=== PATIENT | male | born 2000 | race Caucasian/White ===

== ENCOUNTER 2018-09-01 15:43 | Emergency (ER) | payer SELFPAY ==
[2018-09-01 16:04] VITALS: BP 117/77
--- NOTE | 2018-09-01 16:14 | UC ---
Throat Pain/Nasal Raj HPI - HPI Summary HPI Summary: Ongoing for past week, started as cold and getting worse with cough and wheezing. Has very thick green secretions. Right ear with mild ache, no sore throat. Feels chest congestion and having difficulty sleeping. Also c/o general fatigue. [ End ] - History of Current Complaint Chief Complaint: UCGeneralIllness Stated Complaint: CHEST CONGESTION Time Seen by Provider: 09/01/18 16:01 Hx Obtained From: Patient Onset/Duration: Sudden Onset, Lasting Days Severity: Mild Pain Intensity: 0 Cough: Productive Associated Signs & Symptoms: Positive: Wheezing, Sinus Discomfort, Nasal Discharge - Allergies/Home Medications Allergies/Adverse Reactions: Allergies Allergy/AdvReac Type Severity Reaction Status Date / Time No Known Allergies Allergy Verified 09/01/18 16:04 Home Medications: Home Medications Cetirizine HCl/Pseudoephedrine [Zyrtec-D Tablet] 1 mg PO DAILY 09/01/18 [ History Confirmed 09/01/18] Citalopram TAB* [CeleXA TAB*] 10 mg PO DAILY 09/01/18 [History Confirmed ] busPIRone TAB* [Buspar TAB*] 5 mg PO BID PRN 09/01/18 [History Confirmed ] PMH/Surg Hx/FS Hx/Imm Hx Previously Healthy: Yes - Surgical History Surgical History: None - Family History Known Family History: Positive: Hypertension - Social History Alcohol Use: Occasionally Substance Use Type: None Smoking Status (MU): Never Smoked Tobacco Review of Systems All Other Systems Reviewed And Are Negative: Yes ENT: Positive: Sore Throat, Ear Ache, Nasal Discharge, Sinus Congestion Respiratory: Positive: Cough Neurological: Positive: Headache Is Patient Immunocompromised?: No Physical Exam Triage Information Reviewed: Yes Appearance: Well-Nourished, Ill-Appearing, Pain Distress Vital Signs: Initial Vital Signs Temp 98.4 F 09/01/18 15:58 Pulse 85 09/01/18 15:58 Resp 18 09/01/18 15:58 BP 117/77 09/01/18 15:58 Pulse Ox 98 09/01/18 15:58 Vital Signs Reviewed: Yes Eye Exam: Normal ENT: Positive: Pharyngeal erythema, Nasal congestion, Nasal drainage, TMs normal , TM bulging, Sinus tenderness Dental Exam: Normal Neck exam: Normal Neck: Positive: Supple, Nontender, No Lymphadenopathy Respiratory: Positive: Chest non-tender, Normal breath sounds, No respiratory distress, No accessory muscle use Cardiovascular Exam: Normal Abdominal Exam: Normal Bowel Sounds: Positive: Present Musculoskeletal Exam: Normal Neurological Exam: Normal Psychological Exam: Normal Skin Exam: Normal Throat Pain/Nasal Course/Dx - Course Course Of Treatment: hx obtained, exam performed ,meds reviewed, treated for sinus congestion and wheezing - Differential Dx/Diagnosis Differential Diagnosis/HQI/PQRI: Influenza, Laryngitis, Otitis Media, Pharyngitis, Sinusitis, URI Provider Diagnosis: Sinusitis, Wheezing Discharge - Sign-Out/Discharge Documenting (check all that apply): Patient Departure All imaging exams completed and their final reports reviewed: No Studies - Discharge Plan Condition: Stable Disposition: HOME Prescriptions: Amoxicillin PO (*) [Amoxicillin 875 MG (*)] 875 mg PO BID #20 tab predniSONE [Prednisone 20 MG TAB] 40 mg PO DAILY #10 tablet Patient Education Materials: Sinusitis (ED) Referrals: BLADE Gillespie [Primary Care Provider] - Additional Instructions: 1. take the medication as prescribed. 2. FOllow up as needed 3. Increase fluid intake - Billing Disposition and Condition Condition: STABLE Disposition: Home - Attestation Statements Provider Attestation: I was available for consult. This patient was seen by the FAZAL. The patient was not presented to, seen by, or examined by me. -Andres
== END 2018-09-01 16:36 | disposition home or self-care (01) ==
LOC: UCCORT 15:43
DX: R06.2 Wheezing (principal); J32.9 Chronic sinusitis, unspecified
CPT/HCPCS: 99202; G0463

== ENCOUNTER 2019-04-29 15:45 | Emergency (ER) | payer OTHER ==
--- NOTE | 2019-04-29 16:55 | UC ---
Knee Pain HPI - HPI Summary HPI Summary: 19-year-old male presenting with left knee pain 1 week. Patient states that he "twisted it" while playing basketball 1.5 weeks ago. States the next day he went snowboarding and twisted it again. Patient states since then he has had increasing pain with prolonged standing, ambulating, and weightbearing. Denies any swelling and bruising. States pain is lateral and sometimes radiates to patella. Denies decreased range of motion. Denies numbness and tingling. Denies instability. Notes increased pain with clockwise rotation of lower leg. States he has been taking ibuprofen and using a knee brace from home with some relief. Denies prior injury. - History of Current Complaint Stated Complaint: LT KNEE PAIN Hx Obtained From: Patient - Allergies/Home Medications Allergies/Adverse Reactions: Allergies Allergy/AdvReac Type Severity Reaction Status Date / Time No Known Allergies Allergy Verified 04/29/19 17:05 Home Medications: Home Medications NK [No Home Medications Reported] 04/29/19 [History Confirmed 04/29/19] PMH/Surg Hx/FS Hx/Imm Hx Previously Healthy: Yes - Surgical History Surgical History: None - Family History Known Family History: Positive: Hypertension - Social History Alcohol Use: Occasionally Substance Use Type: None Smoking Status (MU): Never Smoked Tobacco Review of Systems All Other Systems Reviewed And Are Negative: Yes Constitutional: Positive: Negative Skin: Positive: Negative. Negative: Rash, Bruising Respiratory: Positive: Negative Cardiovascular: Positive: Negative Musculoskeletal: Positive: Arthralgia - lateral L knee. Negative: Decreased ROM , Edema Neurological: Positive: Negative. Negative: Paresthesia, Numbness Physical Exam - Summary Physical Exam Summary: Vital Signs Reviewed: Yes A+Ox3, no distress Eyes: Conjunctiva Clear ENT: Hearing grossly normal neck: supple Respiratory: Positive: No respiratory distress, No accessory muscle use Cardiovascular: skin color reflect adequate perfusion Musculoskeletal Exam: BUTTS x 4 without difficulty. positive thessaly test. positive varus stress test. negative debby. no tenderness to palpation of L knee. strength intact. ROM intact. no edema. 2+DP/PT Neurological: Positive: Alert, ambulatory without difficulty Psychological: Positive: Normal Response To Family Skin: Positive: no rash, no ecchymosis Diagnostics - Radiology L knee Radiology Interpretation Completed By: Radiologist Summary of Radiographic Findings: Report: #. Negative for joint effusion, fracture, or articular malalignment. #. Preserved joint spaces. #. Unremarkable soft tissue contours. IMPRESSION: #. Negative exam. Knee Pain Course/Dx - Course Course Of Treatment: Discussed negative radiographs with patient. Instructed to continue with symptomatic treatment and follow up with sports medicine. Patient voiced understanding and agreed with plan. - Differential Dx/Diagnosis Provider Diagnosis: Left lateral knee pain Discharge ED - Sign-Out/Discharge Documenting (check all that apply): Patient Departure All imaging exams completed and their final reports reviewed: Yes - Discharge Plan Condition: Stable Disposition: HOME Patient Education Materials: Knee Pain (ED) Referrals: [facility] [Outside] Additional Instructions: As discussed, your xrays did not show any abnormalities. Rest, ice, elevate, and continue use of knee brace to help alleviate pain. Use over the counter pain medications as directed for pain relief. Refrain from strenuous physical activity until pain has resolved. Follow up with sports medicine listed below for further evaluation of symptoms. - Billing Disposition and Condition Condition: STABLE Disposition: Home
[2019-04-29 17:07] VITALS: BP 117/74
== END 2019-04-29 17:19 | disposition home or self-care (01) ==
LOC: UCCORT 15:45
DX: M25.562 Pain in left knee (principal)
CPT/HCPCS: 99211; G0463